=== PATIENT | female | born 1990 | race Asian ===

== ENCOUNTER 2019-07-23 17:26 | Emergency (ER) | payer MEDICAID, OTHER ==
[~2019-07-23] VITALS: Ht 162.6 cm; Wt 49.0 kg
--- NOTE | 2019-07-23 17:46 | Emergency Room Report ---
History of Present Illness General Chief Complaint: Female Urogenital Problems Source: Patient Present Illness HPI 29-year-old female with a history of ADHD and anxiety from the state of [place] here complaining of 2 days of urinary frequency and dysuria. Reports that she is sexually active and has been having white clumpy vaginal discharge. Reports that she has been the same partner. Reports that she came to [place] to visit on July 13, 2019. Did not bring enough clonazepam and Adderall with her and is afraid that that will go through withdrawal. Denies fever and chills, cough and congestion. Patient does not mentions that she just recently traveled from [place] up until she was already roomed and had already answered no to the question whether she has had any recent travel. Patient appears to be clueless in terms of coronavirus outbreak. Vital signs are within normal limits. Denies . Allergies: Uncoded Allergies: HPV VACCINE (Allergy, Unknown, 07/23/19) COVID-19 Screening Contact w/high risk pt: No Recent Travel to affected area: No Experienced COVID-19 symptoms?: No Patient History Past Medical History: see triage record Past Surgical History: none Pertinent Family History: none Last Menstrual Period: 07/13/19 Immunizations: UTD Reviewed Nursing Documentation: PMH: Agreed; PSxH: Agreed Nursing Documentation-PMH Past Medical History: No History, Except For History Of Psychiatric Problem: Yes - PTSD Review of Systems All Other Systems: negative except mentioned in HPI Physical Exam Vital Signs Date Time Temp Pulse Resp B/P (MAP) Pulse Ox O2 Delivery O2 Flow Rate FiO2 07/23/19 17:29 98.1 87 18 98/61 (73) 99 Room Air Sp02 EP Interpretation: reviewed, normal General Appearance: no apparent distress, alert, GCS 15, non-toxic Head: normocephalic, atraumatic Eyes: bilateral eye normal inspection, bilateral eye PERRL ENT: hearing grossly normal, normal pharynx, no angioedema, normal voice Neck: full range of motion, supple/symm/no masses Respiratory: chest non-tender, lungs clear, normal breath sounds, no rhonchi, speaking full sentences Cardiovascular #1: regular rate, rhythm, no edema, no murmur, normal capillary refill Gastrointestinal: normal bowel sounds, non tender, soft, non-distended, no guarding, no rebound Genitourinary: no CVA tenderness Musculoskeletal: back normal Neurologic: alert Psychiatric: judgement/insight normal Skin: no rash Lymphatic: normal inspection Medical Decision Making PA Attestation All my diagnosis and treatment plans were reviewed ad discussed with my supervising physician Dr. Cannon Diagnostic Impression: Primary Impression: UTI (urinary tract infection) ER Course 29-year-old female with a history of ADHD and anxiety from the [facility] of [place] here complaining of 2 days of urinary frequency and dysuria. Reports that she is sexually active and has been having white clumpy vaginal discharge. Reports that she has been the same partner. Reports that she came to [place] to visit on July 13, 2019. Did not bring enough clonazepam and Adderall with her and is afraid that that will go through withdrawal. Denies fever and chills, cough and congestion. Patient does not mentions that she just recently traveled from [place] up until she was already roomed and had already answered no to the question whether she has had any recent travel. Patient appears to be clueless in terms of coronavirus outbreak. Vital signs are within normal limits. Denies . Ddx considered but are not limited to: UTI, pyelonephritis, urinary incontinence , prolapsed bladder Vital signs: are WNL, pt. is afebrile H&PE are most consistent with: UTI, vaginitis most likely secondary to yeast infection ORDERS: UA, urine cx, urine test, Keflex, Diflucan ED INTERVENTIONS: None required at this time. DISCHARGE: At this time pt. is stable for d/c to home. Will provide printed patient care instructions, and any necessary prescriptions. Care plan and follow up instructions have been discussed with the patient prior to discharge. Patient refuses treatment for STD. Patient was advised to go home and self quarantine due to recent travel from [place]. Also explained to her that we cannot refill her controlled substance as that needs to be refilled by primary doctor or psychiatrist. Unable to do cures patient is patient's proxy document. Also explained to patient that since she is under care of psych doctor for ADHD and anxiety she is cannot obtain medication from other providers available stop her from getting medications from the state psychiatrist. Last Vital Signs Date Time Temp Pulse Resp B/P (MAP) Pulse Ox O2 Delivery O2 Flow Rate FiO2 07/23/19 17:29 98.1 87 18 98/61 (73) 99 Room Air Disposition: HOME, SELF-CARE Condition: Stable Scripts Fluconazole (FLUCONAZOLE) 100 Mg Tablet 150 MG ORAL DAILY for 1 Day, #2 TAB 0 Refills Prov: Annia Castillo 07/23/19 Phenazopyridine Hcl* (PYRIDIUM*) 200 Mg Tablet 200 MG ORAL THREE TIMES A DAY for 2 Days, #6 TAB 0 Refills Prov: Annia Castillo 07/23/19 Cephalexin* (KEFLEX*) 500 Mg Capsule 500 MG ORAL EVERY 12 HOURS for 7 Days, #14 CAP 0 Refills Prov: Annia Castillo 07/23/19 Patient Instructions: Urinary Tract Infection Additional Instructions: Take medication as directed, follow-up with your primary doctor, you need to stay home for self quarantine due to Covid 19 precautions for 14 days. Take antibiotic as directed for your urinary tract infection, we cannot refill your Adderall and clonazepam here as does need to be refilled by primary doctor or psychiatrist. You are from [facility] and you need to receive that from your primary doctor there. Also need to self quarantine as you are a person of interest for coronavirus due to your recent travel from [place] Annia Castillo Jul 23, 2019 17:46
[2019-07-23] MEDS ORDERED: PHENAZOPYRIDIN200 MG ORAL (17:49)
[2019-07-23] MEDS ORDERED: CEPHALEXIN500 MG ORAL (17:49)
[2019-07-23] MEDS ORDERED: FLUCONAZOLE100 MG ORAL (17:56)
[2019-07-23 18:00] VITALS: BP 118/71
--- NOTE | 2019-07-23 18:00 | NUR ---
ED Nurse Note: Patient walked into ED from boyfriend's house. Patient came to [place] from [place]. Patient c/o pain with urination. Urine provided and sent to lab. Patient given Rx for medications and discharged. Patient verbalized understanding of instructions.
[2019-07-23 18:39] LABS: APPEARANCE,URINE CLEAR; BILIRUBIN, URINE NEGATIVE (NEGATIVE); COLOR,URINE PALE YELLOW; GLUCOSE, URINE (UA) NEGATIVE (NEGATIVE); KETONES,URINE NEGATIVE (NEGATIVE); LEUKOCYTE ESTERASE ,URINE 1+ (NEGATIVE); NITRITE,URINE NEGATIVE (NEGATIVE); PH,URINE 6.5 (4.5-8.0); PROTEIN,URINE NEGATIVE (NEGATIVE); UROBILINOGEN,URINE NORMAL MG/DL (0.0-1.0)
== END 2019-07-23 18:00 | disposition home or self-care (01) ==
LOC: EMR 17:40
DX: N39.0 Urinary tract infection, site not specified (principal); Z88.7 Allergy status to serum and vaccine
CPT/HCPCS: 81003; 81025; Z7502; 99283